=== PATIENT | female | born 1960 | race Caucasian/White ===

== ENCOUNTER → 2017-07-07 | Outpatient (CLI) | payer OTHER ==
[~2017-07-07] MED LIST: AMIT25 PO; NAPR500 PO; OMEP20ER PO; TRAACE PO
[2017-07-07 12:05] LABS: BASOPHILS ABSOLUTE AUTO 0.05 K/mm3 (0.00-0.23); BASOPHILS PERCENT AUTO 1 % (0-2); EOSINOPHILS ABSOLUTE AUTO 0.19 K/mm3 (0.00-0.68); EOSINOPHILS PERCENT AUTO 2 % (0-6); Hematocrit 39.6 % (33.0-51.0); Hemoglobin 13.4 g/dL (11.5-16.0); IMMATURE GRAN ABSOLUTE AUTO 0.03 K/mm3 (0.00-0.10); IMMATURE GRAN PERCENT AUTO 0 % (0-1); LYMPHOCYTES ABSOLUTE AUTO 2.75 K/mm3 (0.84-5.20); LYMPHOCYTES PERCENT AUTO 27 % (21-46); MONOCYTES ABSOLUTE AUTO 0.62 K/mm3 (0.16-1.47); MONOCYTES PERCENT AUTO 6 % (4-13); Mean Corpuscular HGB 29.6 pg (26.0-34.0); Mean Corpuscular HGB Conc 33.8 g/dL (31.5-36.5); Mean Corpuscular Volume 88 fL (80-100); Mean Platelet Volume 10.1 fL (9.1-12.4); NEUTROPHILS ABSOLUTE AUTO 6.75 K/mm3 (1.96-9.15); NEUTROPHILS PERCENT AUTO 65 % (41-73); Platelet Count 301 K/mm3 (150-400); RDW Standard Deviation 41.4 fL (35.1-46.3); Red Blood Cell Count 4.52 M/mm3 (3.80-5.20); White Blood Cell Count 10.39 K/mm3 (4.00-11.30)
[2017-07-07 12:17] LABS: Alanine Aminotransfer (ALT/SGP 24 U/L (12-78); Albumin, Blood 3.8 g/dL (3.4-5.0); Albumin/Globulin Ratio 1.1 (0.8-1.8); Alk Phos 75 U/L (50-136); Anion Gap 4 mmol/L (6-16); Aspartate Aminotrans (AST/SGOT 16 U/L (12-37); Bilirubin, Total 0.4 mg/dL (0.1-1.0); Blood Urea Nitrogen 13 mg/dL (8-24); CO2, Blood 27 mmol/L (21-32); Calcium, Blood 8.7 mg/dL (8.5-10.1); Chloride, Blood 107 mmol/L (98-108); Creatinine, Blood 0.56 mg/dL (0.40-1.00); Globulin, Blood 3.6 g/dL (2.2-4.0); Glomerular Filtration Rate >60 (60-); Glucose, Blood 94 mg/dL (70-99); Potassium, Blood 4.1 mmol/L (3.5-5.5); Sodium, Blood 138 mmol/L (136-145); Total Protein, Blood 7.4 g/dL (6.4-8.2)
== END ==
LOC: LAB SHORT 11:50 → LAB 11:50
PROVIDERS: Nurse Practitioner
DX: R10.9 Unspecified abdominal pain (principal)
CPT/HCPCS: 80053; 83690; 85025

== ENCOUNTER 2017-10-04 09:45 | Day surgery (SDC) | payer OTHER ==
[~2017-10-04] VITALS: Ht 160 cm; Wt 91.0 kg
[~2017-10-04 09:45] MED LIST changes: +CELE200; +Hair, Skin & N1 EACH; +[UNRECOGNIZED DRUG - MIXTURE]; +ultracet
== END 2017-10-04 12:30 | disposition home or self-care (01) ==
LOC: ORSCSDS 09:45
PROVIDERS: Surgery
PROC: 0DBK8ZX Excision of Ascending Colon, Via Natural or Artificial Opening Endoscopic, Diagnostic (ICD-10-PCS; principal; 2017-10-04 11:00)
PROC: 0DBN8ZX Excision of Sigmoid Colon, Via Natural or Artificial Opening Endoscopic, Diagnostic (ICD-10-PCS; principal; 2017-10-04 11:00)
PROC: 0DJ08ZZ Inspection of Upper Intestinal Tract, Via Natural or Artificial Opening Endoscopic (ICD-10-PCS; principal; 2017-10-04 11:00)
DX: R10.12 Left upper quadrant pain (principal); K44.9 Diaphragmatic hernia without obstruction or gangrene; D12.5 Benign neoplasm of sigmoid colon; K63.5 Polyp of colon; R11.0 Nausea; R14.0 Abdominal distension (gaseous); K76.0 Fatty (change of) liver, not elsewhere classified; K21.9 Gastro-esophageal reflux disease without esophagitis; Z79.899 Other long term (current) drug therapy; K80.20 Calculus of gallbladder without cholecystitis without obstruction; F17.210 Nicotine dependence, cigarettes, uncomplicated
CPT/HCPCS: 88305; J7120

== ENCOUNTER → 2021-05-26 | Outpatient (CLI) | payer OTHER ==
[~2021-05-26] MED LIST changes: +CELE200 PO; +ESTRADIOL/PROG/TEST SL; +TRAMADOL-ACETAMINOPH PO
[2021-05-26 16:14] LABS: Alanine Aminotransfer (ALT/SGP 23 U/L (12-78); Albumin, Blood 3.9 g/dL (3.4-5.0); Albumin/Globulin Ratio 1.2 (0.8-1.8); Alk Phos 84 U/L (50-136); Anion Gap 6 mmol/L (6-16); Aspartate Aminotrans (AST/SGOT 16 U/L (12-37); Bilirubin, Total 0.5 mg/dL (0.1-1.0); Blood Urea Nitrogen 17 mg/dL (8-24); Bun/Creatinine Ratio 26.8 (12.0-20.0); CO2, Blood 24 mmol/L (21-32); Calcium, Blood 9.2 mg/dL (8.5-10.1); Chloride, Blood 107 mmol/L (98-108); Creatinine, Blood 0.63 mg/dL (0.40-1.00); Globulin, Blood 3.2 g/dL (2.2-4.0); Glomerular Filtration Rate >60 (60-); Glucose, Blood 92 mg/dL (70-99); Sodium, Blood 137 mmol/L (136-145); Total Protein, Blood 7.1 g/dL (6.4-8.2)
== END ==
LOC: LAB 15:15 → LAB SHORT 15:15
PROVIDERS: Physician Assistant
DX: R06.02 Shortness of breath (principal)
CPT/HCPCS: 80053; 83880; 85379

== ENCOUNTER → 2021-10-01 | Outpatient (CLI) | payer OTHER | END | disposition home or self-care (01) | LOC: LAB 10:00 → LAB SHORT 10:00 | DX: L08.9 Local infection of the skin and subcutaneous tissue, unspecified (principal) | CPT/HCPCS: 87070; 87077; 87186; 87205 ==

== ENCOUNTER → 2024-04-26 | Outpatient (CLI) | payer OTHER | END | disposition home or self-care (01) | LOC: LAB 09:54 → LAB SHORT 09:54 | DX: J02.9 Acute pharyngitis, unspecified (principal) | CPT/HCPCS: 87081; 87430 ==